=== PATIENT | female | born 1985 | race Caucasian/White ===

== ENCOUNTER 2017-06-25 15:02 | Emergency (ER) | payer OTHER ==
[~2017-06-25] VITALS: Ht 152.4 cm; Wt 45.8 kg
[~2017-06-25 15:02] MED LIST: ALEVE220 MG PO; CLEOCIN HCL300 MG PO; IBUPROFEN 800800 M1 PO; NAPROSYN500 MG PO; NOHOMEMEDICATIONS; NORCO 5-325 TA1 EACH PO; PENICILLIN V P500 MG PO; PENICILLIN VK500 M1 PO; TRAMADOL 50 MG50 MG PO; VEETIDS 250MG250 M1 PO
[2017-06-25 15:56] LABS: URINE BILIRUBIN NEGATIVE (Negative); URINE BLOOD NEGATIVE (Negative); URINE COLOR YELLOW; URINE GLUCOSE-RANDOM* NEGATIVE (Negative); URINE KETONES NEGATIVE (Negative); URINE LEUKOCYTES-REFLEX NEGATIVE (Negative); URINE PROTEIN (DIPSTICK) NEGATIVE (Negative); URINE UROBILINOGEN 0.2 E.U./dl (0.2-1.0)
[2017-06-25] MEDS ORDERED: FLAGYL500 MG PO (16:14)
[2017-06-25 16:38] VITALS: BP 126/86
[2017-06-27 21:08] LABS: CHLAMYDIA TRACHOMATIS-PCR Negative (Negative); NEISSERIA GONORRHEA-PCR Negative (Negative)
== END 2017-06-25 16:41 | disposition home or self-care (01) ==
LOC: ER 15:02
PROVIDERS: Physician Assistant
DX: N76.0 Acute vaginitis (principal); F17.210 Nicotine dependence, cigarettes, uncomplicated; Z90.49 Acquired absence of other specified parts of digestive tract; Z98.890 Other specified postprocedural states